=== PATIENT | female | born 1965 | race African-American/Black ===

== ENCOUNTER 2020-07-02 11:17 | Emergency (ER) | payer MEDICARE ==
[~2020-07-02] VITALS: Ht 167.6 cm; Wt 75.0 kg
[2020-07-02] MEDS ORDERED: SODIUM CHLORIDE 0.9% 1,000 ML IV ONE ×2 (12:15→13:00)
[2020-07-02 12:20] LABS: BASOPHILS % 0.6 % (0.0-2.0); EOSINOPHILS % 0.8 % (0.0-5.0); HEMATOCRIT. 35.4 % (36.0-48.0); HEMOGLOBIN. 11.7 g/dL (12.0-16.0); LYMPHOCYTES % 32.4 % (20.0-50.0); MEAN CORPUSCULAR HEMOGLOBIN 27.4 pg (28.0-32.0); MEAN PLATELET VOLUME 8.8 fl (7.4-10.4); MONOCYTES % 6.7 % (2.0-8.0); NEUTROPHILS % 59.5 % (40.0-76.0); PLATELET 420 x1000/uL (130-400); RED BLOOD CELL COUNT 4.27 mill/uL (4.2-5.4); RED CELL DISTRIBUTION WIDTH 13.7 % (11.6-14.6)
[2020-07-02 12:38] LABS: CHLORIDE 97 mEq/L (98-107)
[2020-07-02] MEDS ORDERED: INSULIN LISPRO 100 UNITS/ML SUBCUT ONE (13:00)
[2020-07-02] MEDS ORDERED: FLUCONAZOLE 50MG TABLET PO ONE (13:00)
[2020-07-02] MEDS ORDERED: POTASSIUM CHLORIDE 20MEQ TABLET SR PO ONE (13:00)
[2020-07-02] MEDS ORDERED: FLUCONAZOLE 150MG TABLET PO ONE (13:15)
[2020-07-02 15:29] VITALS: BP 124/83
== END 2020-07-02 16:13 | disposition home or self-care (01) ==
LOC: ER 11:17
DX: E11.65 Type 2 diabetes mellitus with hyperglycemia (principal); B37.3 Candidiasis of vulva and vagina
CPT/HCPCS: 36415; 80053; 81025; 82962; 85025; 93005; 96360; 96361; 99284; J1815; J7030